=== PATIENT | female | born 1995 | race Caucasian/White ===

== ENCOUNTER 2019-11-19 08:57 | Emergency (ER) | payer OTHER ==
[~2019-11-19] VITALS: Ht 162.6 cm; Wt 113.4 kg
[2019-11-19 09:43] LABS: HEMOGLOBIN 13.8 gm/dL (12.0-15.0); NUCLEATED RBCS 0 /100WBC
[2019-11-19 09:45] LABS: ABSOLUTE EOSINOPHILS 0.1 thou/uL (0.0-0.7); ABSOLUTE LYMPHOCYTES 1.3 thou/uL (0.8-5.3); ABSOLUTE MONOCYTES 0.4 thou/uL (0.0-1.2); ABSOLUTE NEUTROPHILS 2.4 thou/uL (1.6-8.1); BASOPHILS 0.7 %; EOSINOPHILS 2.4 %; HEMATOCRIT 39.1 % (37.0-47.0); LYMPHOCYTES 29.5 %; MCH 30.3 pg (26.0-34.0); MCHC 35.3 g/dL (28.0-37.0); MCV 85.9 fL (80.0-100.0); MONOCYTES 9.7 %; MPV 7.4 fl. (7.2-11.1); PLATELET COUNT* 226 thou/uL (150-400); POLYS 57.7 %; RBC 4.55 mil/uL (4.20-5.00); WBC 4.2 thou/uL (4.0-11.0)
[2019-11-19 09:46] LABS: CALCIUM 8.9 mg/dL (8.5-10.1); CREATININE 0.9 mg/dL (0.6-1.3); POTASSIUM 3.9 mmol/L (3.5-5.1)
[2019-11-19 09:51] LABS: TOTAL BILIRUBIN 0.5 mg/dL (<0.1-1.0); TOTAL PROTEIN 8.1 g/dL (6.4-8.2)
[2019-11-19 11:36] VITALS: BP 126/73
--- NOTE | 2019-11-19 16:19 | EKG ---
[place] [address] ELECTROCARDIOGRAM REPORT Name: SAVI VALENCIALIAhsan BUCHANANN Room: [facility]#: [id number] Admission: 11/19/19 Attend Phys: Discharge: 11/19/19 Date of : 89 Date of Service: 11/19/1933 Report #: [id number] THIS REPORT FOR: //name// [facility] ED Test Date: 2019-11-19 Test Time: 09:35:22 Pat Name: GRADY VALENCIA Department: Room: Gender: F [employer] Rep[employer]: [facility] : 1995 Requested By: Austyn Durán Order Number: [id number] MD: Meliton Apdoaca Measurements Intervals [place] Rate: 103 P: 49 AK: 158 QRS: 56 QRSD: 88 T: 18 QT: 342 QTc: 448 Interpretive Statements Sinus tachycardia Borderline T abnormalities, anterior leads No previous ECG available for comparison Electronically Signed On 11-19-2019 16:19:03 CDT by Meliton Apodaca [email or web address] <ELECTRONICALLY SIGNED> By: Meliton Apodaca MD, [facility] 11/19/19 1619 4 Meliton Apodaca MD, [facility] /EPI
== END 2019-11-19 11:37 | disposition home or self-care (01) ==
LOC: M.ERS 08:57
PROVIDERS: Emergency Medicine Emergency Medical Services
DX: R20.0 Anesthesia of skin (principal)